=== PATIENT | female | born 1990 | race Caucasian/White ===

== ENCOUNTER 2017-09-19 22:11 | Emergency (ER) | payer OTHER, SELFPAY ==
[2017-09-19] MEDS ORDERED: NA CHLORIDE 0.9% 1,000 ML ONE (23:21)
[2017-09-19] MEDS ORDERED: PROMETHAZINE 25 MG/ML VIAL ONE (23:21)
[2017-09-19 23:48] LABS: Absolute Lymphocytes (CBC) 1.8 K/uL (0.7-4.9); Absolute Monocytes 0.9 K/uL (0.1-1.3); Absolute Neutrophil 13.4 K/uL (1.8-8.0); Basophils % 0.3 % (0-1.3); Eosinophils % 0.1 % (0-4.4); Hematocrit 37.9 % (36.0-45.0); Lymphocytes % 11.1 % (15.3-44.8); MCV 91.1 fL (80-100); MPV 8.6 fL (7.6-11.3); Monocytes % 5.7 % (3.3-12.3); RBC Red Blood Cell Count 4.16 M/uL (3.86-4.86)
[2017-09-19 23:51] LABS: Urine Blood TRACE (NEG); Urine Glucose NEGATIVE (NEG); Urine Protein 1+ (NEG); Urine Specific Gravity 1.025 (1.005-1.030)
[2017-09-20 00:04] LABS: Bicarbonate 24 mEq/L (21-31); Glucose Level 93 mg/dL (65-120); Lipase 14 U/L (22-51); Potassium 3.4 mEq/L (3.6-5.0); Sodium Level 136 mEq/L (135-145)
[2017-09-20 00:10] LABS: ALT/SGPT 11 IU/L (10-60); AST/SGOT 20 IU/L (10-42); Albumin 4.5 g/dL (3.2-5.5); Alkaline Phosphatase 64 IU/L (42-121); BUN Blood Urea Nitrogen 12 mg/dL (6-20); Bilirubin Direct 0.1 mg/dL (0-0.2); Bilirubin Total 0.7 mg/dL (0.3-1.2); Protein, Total 7.3 g/dL (6.0-8.3); Urine Bacteria 20-50 /HPF (<20); Urine Culture Reflex Order REFLEXED; Urine Mucus 3+ /HPF (NONE SEEN); Urine RBC <5 /HPF (NONE SEEN)
[2017-09-20] MEDS ORDERED: AMOX/K CLAV 875 MG TAB ONE (00:30)
--- NOTE | 2017-09-20 01:05 | ER ---
Nurse's Notes [facility] Name: Frannie Kothari Age: 26 yrs Sex: Female : 1990 Arrival Date: 09/19/2017 Time: 22:15 Bed 30 Private MD: Diagnosis: Urinary tract infection, site not specified;Dehydration;Vomiting of , unspecified Presentation: 09/19 22:52 Presenting complaint: Patient states: vomiting for several days, 6 weeks . tl3 Transition of care: patient was not received from another setting of care. Onset of symptoms was September 15, 2017. Note pt has not seen the OB doctor yet. Care prior to arrival: None. 22:52 Method Of Arrival: Ambulatory tl3 22:52 Acuity: RICKY 3 tl3 Triage Assessment: 22:54 General: Appears in no apparent distress. Behavior is calm, cooperative, appropriate tl3 for age, anxious. Pain: Complains of pain in abdomen. EENT: No signs and/or symptoms were reported regarding the EENT system. Neuro: Level of Consciousness is awake, alert, obeys commands, Oriented to person, place, time, situation, Appropriate for age. Cardiovascular: Heart tones S1 S2 present Capillary refill < 3 seconds in bilateral fingers. Respiratory: Breath sounds are clear bilaterally. GI: Bowel sounds present X 4 quads. Reports nausea, vomiting. : No signs and/or symptoms were reported regarding the genitourinary system. Derm: No signs and/or symptoms reported regarding the dermatologic system. Musculoskeletal: No signs and/or symptoms reported regarding the musculoskeletal system. 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 - Social history:: Smoking status: Patient/guardian denies using tobacco, never smoked, Patient/guardian denies using alcohol. Screenin:57 Abuse screen: Denies threats or abuse. Nutritional screening: No deficits noted. tl3 Tuberculosis screening: No symptoms or risk factors identified. Fall Risk None identified. Assessment: 22:57 Reassessment: Patient appears in no apparent distress at this time. No changes from tl3 previously documented assessment. Patient is alert, oriented x 3, equal unlabored respirations, skin warm/dry/pink. Gabe at bedside for assement. General:. GI: Reports nausea, vomiting. 09/20 01:05 Reassessment: Pt. refusing antibiotics... states that she is hungry and wants to leave. rk2 Offered crackers and water; however, pt. refuses. Notified provider. Vital Signs: 09/19 22:39 BP 114 / 71; Pulse 70; Resp 16; Temp 97.9(O); Pulse Ox 99% on R/A; jb5 09/20 01:12 BP 118 / 67; Pulse 81; Resp 17; Pulse Ox 99% on R/A; rk2 ED Course: 09/19 22:15 Patient arrived in ED. do 22:52 Anayeli Lai, ANJUM is Primary Nurse. tl3 22:53 Triage completed. tl3 22:54 Gabe Trejo PA is PHCP. jr8 22:54 Nathan Richard MD is Attending Physician. jr8 22:54 Arm band placed on right wrist. tl3 22:57 Resting quietly. tl3 22:57 Patient has correct armband on for positive identification. Placed in gown. Bed in low tl3 position. 22:57 No provider procedures requiring assistance completed. Inserted saline lock: 22 gauge tl3 in right antecubital area, using aseptic technique. 09/20 01:15 IV discontinued. rk2 Administered Medications: 09/19 23:34 Drug: NS 0.9% 1000 ml Route: IV; Rate: 1000 ml; Site: right antecubital; tl3 09/20 01:14 Follow up: Response: No adverse reaction; IV Status: Completed infusion rk2 09/19 23:34 Drug: Phenergan 12.5 mg Route: IVP; Infused Over: 5 mins; Site: right antecubital; tl3 09/20 00:16 Follow up: Response: No adverse reaction; Nausea is decreased tl3 00:16 CANCELLED (Duplicate Order): Phenergan 12.5 mg IVP once tl3 00:16 Drug: Phenergan 12.5 mg Route: IVP; Site: right antecubital; tl3 01:14 Follow up: Response: No adverse reaction; Nausea is decreased rk2 00:27 CANCELLED (Physician Discretion): Rocephin 1 grams IV at calculated rate once; Given jr8 slow IV push per pharmacy instructions 01:05 Not Given (Patient Refused): Augmentin 875 mg PO once rk2 Outcome: 01:04 Discharge ordered by . steve 01:15 Discharged to home ambulatory. rk2 01:15 Condition: improved 01:15 Discharge instructions given to patient, Prescriptions given X 2. 01:15 Patient left the ED. rk2 Signatures: Gabe Trejo PA PA jr8 Tess Pablo Jennifer jb5 Keri Chase RN RN rk2 Anayeli Lai, ANJUM RN tl3 Corrections: (The following items were deleted from the chart) 00:47 09/19 22:54 Allergies: No Known Allergies; tl3 tl3
--- NOTE | 2017-09-20 01:05 | EDPHYS ---
Physician Documentation [facility] Name: Frannie Kothari Age: 26 yrs Sex: Female : 1990 Arrival Date: 09/19/2017 Time: 22:15 Bed 30 Private MD: ED Physician Nathan Richard HPI: 09/19 23:25 This 26 yrs old Female presents to ER via Ambulatory with complaints of jr8 Nausea/Vomiting, 8 Weeks . 23:25 The patient presents to the emergency department with nausea, vomiting. Onset: The jr8 symptoms/episode began/occurred gradually, 2 week(s) ago, and became worse today, and became persistent today. Possible causes: bad food exposure. The symptoms are aggravated by nothing. The symptoms are alleviated by nothing. Associated signs and symptoms: The patient has no apparent associated signs or symptoms. Severity of symptoms: At their worst the symptoms were moderate in the emergency department the symptoms are unchanged. The patient has not experienced similar symptoms in the past. The patient has not recently seen a physician. Patient stated that she is and has been experiencing morning sickness. Had a couple of [employer] burritos today. Since then has had continues vomiting throughout the day. 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 - Social history:: Smoking status: Patient/guardian denies using tobacco, never smoked, Patient/guardian denies using alcohol. ROS: 23:25 Eyes: Negative for injury, pain, redness, and discharge, ENT: Negative for injury, jr8 pain, and discharge, Neck: Negative for injury, pain, and swelling, Cardiovascular: Negative for chest pain, palpitations, and edema, Respiratory: Negative for shortness of breath, cough, wheezing, and pleuritic chest pain, Back: Negative for injury and pain, : Positive for burning with urination. Denies vaginal bleeding, spotting, discharge, or itching MS/Extremity: Negative for injury and deformity, Skin: Negative for injury, rash, and discoloration, Neuro: Negative for headache, weakness, numbness, tingling, and seizure. 23:25 Abdomen/GI: Positive for nausea and vomiting, Negative for abdominal pain, abdominal cramps, abdominal distension, anorexia, dysphagia, hematemesis, black/tarry stool, rectal pain, rectal bleeding, bowel incontinence, flatulence. Exam: 23:25 Eyes: Pupils equal round and reactive to light, extra-ocular motions intact. Lids and jr8 lashes normal. Conjunctiva and sclera are non-icteric and not injected. Cornea within normal limits. Periorbital areas with no swelling, redness, or edema. ENT: Nares patent. No nasal discharge, no septal abnormalities noted. Tympanic membranes are normal and external auditory canals are clear. Oropharynx with no redness, swelling, or masses, exudates, or evidence of obstruction, uvula midline. Mucous membranes moist. Neck: Trachea midline, no thyromegaly or masses palpated, and no cervical lymphadenopathy. Supple, full range of motion without nuchal rigidity, or vertebral point tenderness. No Meningismus. Cardiovascular: Regular rate and rhythm with a normal S1 and S2. No gallops, murmurs, or rubs. Normal PMI, no JVD. No pulse deficits. Respiratory: Lungs have equal breath sounds bilaterally, clear to auscultation and percussion. No rales, rhonchi or wheezes noted. No increased work of breathing, no retractions or nasal flaring. Back: No spinal tenderness. No costovertebral tenderness. Full range of motion. Skin: Warm, dry with normal turgor. Normal color with no rashes, no lesions, and no evidence of cellulitis. MS/ Extremity: Pulses equal, no cyanosis. Neurovascular intact. Full, normal range of motion. Neuro: Awake and alert, GCS 15, oriented to person, place, time, and situation. Cranial nerves II-XII grossly intact. Motor strength 5/5 in all extremities. Sensory grossly intact. Cerebellar exam normal. Normal gait. 23:25 Abdomen/GI: Inspection: abdomen appears normal, Bowel sounds: active, all quadrants, Palpation: soft, in all quadrants, mild abdominal tenderness, in the left upper quadrant, mass, is not appreciated, rebound tenderness, is not appreciated, voluntary guarding, is not appreciated, involuntary guarding, is not appreciated, no appreciated organomegaly, Indicators: McBurney's point is not tender, Villagran's sign is negative, Rovsing's sign is negative, Liver: no appreciated palpable abnormalities, tenderness, is not appreciated. Vital Signs: 22:39 BP 114 / 71; Pulse 70; Resp 16; Temp 97.9(O); Pulse Ox 99% on R/A; jb5 09/20 01:12 BP 118 / 67; Pulse 81; Resp 17; Pulse Ox 99% on R/A; rk2 MDM: 09/19 22:54 [facility] medically [facility]. [facility] 01:01 Data reviewed: vital signs, nurses notes, lab test result(s), and as a result, I will jr8 discharge patient. Data interpreted: Pulse oximetry: on room air is 99 %. Interpretation: normal. Counseling: I had a detailed discussion with the patient and/or guardian regarding: the historical points, exam findings, and any diagnostic results supporting the discharge/admit diagnosis, lab results, the need for outpatient follow up, an OB/Gyne specialist, to return to the emergency department if symptoms worsen or persist or if there are any questions or concerns that arise at home. ED course: Patient without vomiting while in ED. Will send home on Phenergan and Augmentin for UTI and n/v . 09/19 22:45 Order name: Urine Dipstick--Ancillary (enter results); Complete Time: 23:55 [facility] 09/19 22:45 Order name: Urine --Ancillary (enter results); Complete Time: 23:55 [facility] 09/19 23:05 Order name: Urine Microscopic Only; Complete Time: 00:18 [facility] 09/[facility] 23:05 Order name: Basic Metabolic Panel; Complete Time: 00:18 [facility] 09/19 23:05 Order name: CBC with Diff; Complete Time: 23:58 [facility] 09/19 23:05 Order name: Creatinine for Radiology; Complete Time: 00:04 [facility] 09/19 23:05 Order name: Hepatic Function; Complete Time: 00:18 [facility] 09/19 23:05 Order name: Lipase; Complete Time: 00:18 [facility] 09/20 00:11 Order name: Urine Culture ED[facility] 09/19 23:05 Order name: IV Saline Lock; Complete Time: 23:35 [facility] 09/19 23:05 Order name: Labs collected and sent; Complete Time: 23:35 [facility] 09/19 23:05 Order name: Urine Dipstick-Ancillary (obtain specimen); Complete Time: 23:35 jr8 Administered Medications: 09/19 23:34 Drug: NS 0.9% 1000 ml Route: IV; Rate: 1000 ml; Site: right antecubital; tl3 09/20 01:14 Follow up: Response: No adverse reaction; IV Status: Completed infusion rk2 09/19 23:34 Drug: Phenergan 12.5 mg Route: IVP; Infused Over: 5 mins; Site: right antecubital; tl3 09/20 00:16 Follow up: Response: No adverse reaction; Nausea is decreased tl3 00:16 CANCELLED (Duplicate Order): Phenergan 12.5 mg IVP once tl3 00:16 Drug: Phenergan 12.5 mg Route: IVP; Site: right antecubital; tl3 01:14 Follow up: Response: No adverse reaction; Nausea is decreased rk2 00:27 CANCELLED (Physician Discretion): Rocephin 1 grams IV at calculated rate once; Given jr8 slow IV push per pharmacy instructions 01:05 Not Given (Patient Refused): Augmentin 875 mg PO once rk2 Disposition: 09/20/17 01:04 Discharged to Home. Impression: Urinary tract infection, site not specified, Dehydration, Vomiting of , unspecified. - Condition is Stable. - Discharge Instructions: Dehydration, Adult, Urinary Tract Infection, Morning Sickness. - Prescriptions for Augmentin 875- 125 mg Oral Tablet - take 1 tablet by ORAL route every 12 hours for 10 days; 20 tablet. promethazine 25 mg Oral Tablet - take 1 tablet by ORAL route every 6 hours As needed; 20 tablet. - Medication Reconciliation Form, Thank You Letter, Antibiotic Education, Prescription Opioid Use form. - Follow up: Private Physician; When: 2 - 3 days; Reason: Recheck today's complaints, Continuance of care, Re-evaluation by your physician. - Problem is new. - Symptoms have improved. Addendum: 09/21/2017 06:23 Co-signature as Attending Physician, Nathan Richard MD. g s Signatures: Dispatcher [employer] EDMS Gabe Trejo PA PA jr8 Nathan Richard MD MD gs Kidder, Rhonda RN RN rk2 Joelle, Anayeli, RN RN tl3 Corrections: (The following items were deleted from the chart) 09/20 00:16 00:04 Phenergan 12.5 mg IVP once ordered. jr8 tl3 00:27 00:18 Rocephin 1 grams IV at calculated rate once; Given slow IV push per pharmacy jr8 instructions ordered. jr8 00:47 09/19 22:54 Allergies: No Known Allergies; tl3 tl3
[2017-09-20 01:31] VITALS: TEMP 97.9; O2SAT 99
[2017-09-20 01:33] VITALS: BP 118/67
== END 2017-09-20 01:15 | disposition home or self-care (01) ==
LOC: ER 22:11
DX: O23.41 Unspecified infection of urinary tract in pregnancy, first trimester (principal); E86.0 Dehydration; Z3A.08 8 weeks gestation of pregnancy; Z88.1 Allergy status to other antibiotic agents
CPT/HCPCS: 36415; 80048; 80076; 81003; 81015; 81025; 83690; 85025; 87086; 87088; 96361; 96374; 99283; J2550; J7030